=== PATIENT | male | born 1935 | race Caucasian/White ===

== ENCOUNTER 2021-10-26 14:12 | Emergency (ER) | payer OTHER, SELFPAY ==
[2021-10-26 14:25] VITALS: BP 109/69; PULSE 87; RESP 16; TEMP 36.9; O2SAT 98
--- NOTE | 2021-10-26 14:32 | ED.LOWEXIN ---
HPI - Extremity Injury (Lower) General Chief Complaint: Extremity Injury, Lower Stated Complaint: right foot injury Time Seen by Provider: 10/26/21 14:32 Source: patient Mode of arrival: ambulatory Limitations: no limitations History of Present Illness HPI Narrative: 86 yo M presents with puncture wound to R foot. Was working outside on old shed and stepped on ramandeep nail poking out of a board. Was wearing work boots. Here for tetanus vaccine. Pt thinks last one was over 10 yrs ago. bleeding controlled. Has not cleaned wound. All systems reviewed and negative except as noted above. Related Data Home Medications Medication Instructions Recorded Confirmed Unable to Obtain Home Medications 10/26/21 10/26/21 Allergies Allergy/AdvReac Type Severity Reaction Status Date / Time No Known Allergies Allergy Verified 10/26/21 14:21 Review of Systems Review of Systems: CONSTITUTIONAL: Denies fever, chills, or sweats. EYES: Denies visual changes, redness, or discharge. ENT: Denies rhinorrhea, congestion, sore throat, or otalgia. CARDIOVASCULAR: Denies chest pain, palpitations, or edema. RESPIRATORY: Denies cough or dyspnea. GASTROINTESTINAL: Denies abdominal pain, nausea, vomiting, or diarrhea. GENITOURINARY: Denies dysuria or hematuria. SKIN: Denies rash or itching. Puncture wound to right foot MUSCULOSKELETAL: Denies back pain, joint pain, or myalgia. NEUROLOGIC: Denies headache, numbness, or weakness. PSYCHIATRIC: Denies anxiety or depression. All other systems reviewed are negative, except as documented in HPI. PMFSH Comments At time of signature, agree with nursing past medical, surgical, social and family history. There is no relevant family history pertinent to the presenting complaint. Exam Narrative: GENERAL: This is a well-nourished, well-developed patient, in no apparent distress. HEAD: normocephalic, atraumatic. EYES: PERRL. Sclera clear/white. Vision is grossly intact. EARS: External ears normal, auditory canals clear and without drainage, TMs normal without perforation. Hearing grossly intact. NOSE: External nose normal with no obvious nasal discharge, nares without redness, no rhinorrhea. THROAT: Mucous membranes moist, posterior pharynx clear. NECK: Neck supple, non-tender without lymphadenopathy, masses or thyromegaly. CARDIOVASCULAR: Regular rate and rhythm without murmurs, gallops, or rubs. RESPIRATORY: Clear to auscultation. Breath sounds equal bilaterally. No wheezes, rales, or rhonchi. GASTROINTESTINAL: Abdomen soft, non-tender, nondistended. Bowel sounds are active. No hepato-splenomegaly, or palpable masses. No guarding. SKIN: warm, Dry, with no suspicious lesions or rash, good texture and turgor. tiny superficial puncture wound to R foot. bleeding controlled. No retained FB noted. NEURO: awake, alert, and oriented to person, place and time. There were no obvious focal neurologic abnormalities. EXTREMITIES: No joint tenderness, effusion, or edema noted. No calf tenderness. Negative Homans sign bilaterally. BACK: Nontender without deformity. No CVA tenderness. Extrem: Ankle/foot/toe images: 1. small puncture wound Course Course Level of Care: Express Care Visit Vital Signs Vital signs: Vital Signs Temperature 36.9 C 10/26/21 14:25 Pulse Rate 87 10/26/21 14:25 Respiratory Rate 16 10/26/21 14:25 Blood Pressure 109/69 10/26/21 14:25 Pulse Oximetry 98 10/26/21 14:25 Temperature 36.9 C 10/26/21 14:25 Pulse Rate 87 10/26/21 14:25 Respiratory Rate 16 10/26/21 14:25 Blood Pressure 109/69 10/26/21 14:25 Pulse Oximetry 98 10/26/21 14:25 Reviewed Procedures Other Procedure Procedure 1: Other Procedure: wound cleaned with saline and technicare. Neosporin and bandaid applied. MDM - Extremity Injury (Lower) MDM Narrative Medical decision making narrative: Patient is aware of diagnosis, understands and agrees to treatment plan. Anticipatory guidance give
[2021-10-26] MEDS: TETANUS,DIPHTHERIA,AC PERTUSSIS ADULT (0.5 ML) BOOSTRIX IM (14:55)
== END 2021-10-26 14:59 | disposition home or self-care (01) ==
PROVIDERS: Emergency Provider Nurse Practitioner Family
DX: S91.331A Puncture wound without foreign body, right foot, initial encounter (principal); W45.0XXA Nail entering through skin, initial encounter; Z23 Encounter for immunization; I10 Essential (primary) hypertension
CPT/HCPCS: 90471; 90715; 99212; G0463

== ENCOUNTER 2024-02-17 11:01 | Emergency (ER) | payer OTHER, SELFPAY ==
--- NOTE | ~2024-02-17 | XR_ITS ---
EXAMINATION: XR chest 2V DATE: 02/17/2024 11:23 INDICATION: Cough and crackles TECHNIQUE: PA and lateral views of the chest were obtained. COMPARISON: None FINDINGS: Anterolateral calcified pleural plaque projecting over the right midlung. Additional smaller calcifie d pleural plaque projecting along the lateral left midlung zone. There are few small bilateral calcif ied pulmonary nodules consistent with old granulomatous disease. No other airspace opacities, pulmona ry edema, pleural effusion or pneumothorax. Heart size is normal. Mild thoracic spondylosis. IMPRESSION: 1. No acute cardiopulmonary disease. 2. Scattered calcified pulmonary nodules consistent with old granulomatous disease and calcified bila teral pleural plaques suggestive of prior asbestos exposure. Reviewed, dictated and finalized at location A. IMPRESSION: 1. No acute cardiopulmonary disease. 2. Scattered calcified pulmonary nodules consistent with old granulomatous dise ase and calcified bilateral pleural plaques suggestive of prior asbestos exposu re.
--- NOTE | 2024-02-17 11:03 | ED.URI ---
HPI - URI/Sore Throat General Chief Complaint: Upper Respiratory Infection Stated Complaint: Chest Congestion Time Seen by Provider: 02/17/24 11:03 Source: patient Mode of arrival: ambulatory Limitations: no limitations History of Present Illness HPI Narrative: Jarek is an 88-year-old male patient presenting to the clinic today with complaints of chest congestion, productive cough, and runny nose x5 days. He reports he took an at-home COVID test yesterday and was negative. He states he does feel short of breath at nighttime. Denies any history of COPD or asthma. Denies any lower extremity swelling. Does not recall the color of the phlegm that he is coughing up. MD elicited complaint: cough, rhinorrhea, nasal congestion and other (Chest congestion) Related Data Allergies Allergy/AdvReac Type Severity Reaction Status Date / Time No Known Allergies Allergy Verified 02/17/24 11:11 Review of Systems Review of Systems: Pertinent positives per HPI. Patient denies any fever, chills, rash, headache, visual changes, dizziness, chest pain, palpitations, nausea, vomiting, diarrhea, constipation, abdominal pain, or any urinary issues. PMFSH Comments At the time of my signature, I reviewed and agree with the nursing past medical, surgical, social, and family history. There is no relevant family history pertinent to the patient complaint. Exam Narrative: General: Well-developed, well nourished, in no apparent distress Head: Normocephalic, atraumatic Eyes: Pupils equally round and reactive to light bilaterally, EOM intact, sclera and conjunctive clear, no discharge, lids normal Ears: TMs intact and clear, ear canals clear, no drainage, grossly hearing normal. Nose: Nares patent, no discharge, no inflammation, no sinus tenderness. Mouth: Oral pharynx without lesions or masses, good dentition, MMM. Neck: Supple, trachea midline, no enlargement of anterior or posterior cervical nodes, no thyroid masses or goiter palpable. Cardio: Regular rate and rhythm, s1 and s2 normal, no murmur appreciated. Resp: Crackles heard over the mid/lower left posterior lung field, no rhonchi, wheezing or rubs Course Course Emergency Course: Portions of this record may have been created with voice recognition software. Level of Care: Express Care Visit Vital Signs Vital signs: Vital Signs Temperature 37.2 C 02/17/24 11:08 Pulse Rate 97 06/23/24 11:08 Respiratory Rate 16 02/17/24 11:08 Blood Pressure 127/61 02/17/24 11:08 Pulse Oximetry 97 02/17/24 11:08 Temperature 37.2 C 02/17/24 11:08 Pulse Rate 97 02/17/24 11:08 Respiratory Rate 16 02/17/24 11:08 Blood Pressure 127/61 02/17/24 11:08 Pulse Oximetry 97 02/17/24 11:08 Vital signs reviewed MDM - URI/Sore Throat MDM Narrative Medical decision making narrative: At the time of visit patient is resting comfortably on the exam table. Patient appears to be nontoxic. 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 Plan: I suspect patient has acute bronchitis. Will send in prescription for prednisone and albuterol. Will also send in a Z-Gilbert as the patient does have lung disease and is more likely to develop pneumonia. Supportive measures were discussed with the patient and they voiced understanding discharge instructions and agrees to treatment plan. Return precautions reviewed Differential Diagnosis Differential diagnosis: Likely upper respiratory infection, otitis media, sinusitis, viral infection, bronchitis, influenza, pharyngitis and other (COVID) Imaging Data Radiologist's impression: ITS Impressions Chest X-Ray 02/17/24 11:24 IMPRESSION: 1. No acute cardiopulmonary disease. 2. Scattered calcified pulmonary nodules consistent with old granulomatous disease and calcified bilateral pleural plaques suggestive of p
[2024-02-17 11:08] VITALS: BP 127/61; PULSE 97; RESP 16; TEMP 37.2; O2SAT 97
== END 2024-02-17 11:45 | disposition home or self-care (01) ==
PROVIDERS: Emergency Provider Nurse Practitioner Family
DX: J40 Bronchitis, not specified as acute or chronic (principal); I10 Essential (primary) hypertension
CPT/HCPCS: 71046; 99213; G0463